=== PATIENT | female | born 1990 | race Caucasian/White ===

== ENCOUNTER 2017-06-03 18:39 | Emergency (ER) | payer MEDICAID, OTHER ==
[2017-06-03 19:54] VITALS: BP 127/69
[2017-06-03] MEDS ORDERED: Ibuprofen TAB* 600 MG PO ONE (20:12)
[2017-06-03] MEDS ORDERED: Ondansetron ODT TAB* 4 MG PO ONE (20:12)
--- NOTE | 2017-06-03 20:41 | UC ---
UC General HPI - HPI Summary HPI Summary: pt states on saturday am she developed chills, nausea, diarrhea and mm aches. on she was dx with a "urethritis" by Dr Roberts. she was prescribed doxycycline but instructed not to start it until the . she got in 3 doses before her current s/s's. she called them and was advised to stop that drug. pt denies travel hx, IBD and abdominal pain. she notes her fiancee has the same symptoms. - History of Current Complaint Chief Complaint: UCGeneralIllness Stated Complaint: FEVER, CHILLS Time Seen by Provider: 06/03/17 20:03 Hx Obtained From: Patient Hx Last Menstrual Period: 05/30/17 Onset/Duration: Gradual Onset Timing: Constant Pain Intensity: 3 Associated Signs & Symptoms: Positive: Diarrhea, Nausea - Allergy/Home Medications Allergies/Adverse Reactions: Allergies Allergy/AdvReac Type Severity Reaction Status Date / Time vancomycin Allergy See Comment Verified 06/03/17 19:48 Home Medications: Home Medications Citalopram TAB* [CeleXA TAB*] 20 mg PO DAILY 06/03/17 [History Confirmed ] DOXYcycline CAP(*) [DOXYcycline 100MG CAP(*)] 100 mg PO BID 06/03/17 [History Confirmed 06/03/17] PMH/Surg Hx/FS Hx/Imm Hx - Additional Past Medical History Additional PMH: Urethritis - Surgical History Surgical History: Yes Surgery Procedure, Year, and Place: T&A. I&D of MRSA Right Buttock. Devaited Septum repair. 08/31 - Family History Known Family History: Positive: Unknown - Adopted Negative: Hypertension Family History: negative - Social History Occupation: Employed Full-time Lives: With Family Alcohol Use: Rare Substance Use Type: None Smoking Status (MU): Never Smoked Tobacco - Immunization History Most Recent Influenza Vaccination: 12/2014 Vaccination Up to Date: Yes Review of Systems Constitutional: Chills Skin: Negative Eyes: Negative ENT: Negative Respiratory: Negative Cardiovascular: Negative Gastrointestinal: Diarrhea, Nausea Genitourinary: Negative Motor: Negative Neurovascular: Negative Musculoskeletal: Myalgia Neurological: Negative Psychological: Negative Is Patient Immunocompromised?: No All Other Systems Reviewed And Are Negative: Yes Physical Exam Triage Information Reviewed: Yes Appearance: Ill-Appearing Vital Signs: Initial Vital Signs Temp 99.1 F 06/03/17 19:46 Pulse 101 06/03/17 19:46 Resp 18 06/03/17 19:46 BP 127/69 06/03/17 19:46 Pulse Ox 100 06/03/17 19:46 Eyes: Positive: Conjunctiva Clear ENT: Positive: Pharynx normal, TMs normal. Negative: Nasal congestion, Nasal drainage Neck: Positive: Supple, Nontender, No Lymphadenopathy Respiratory: Positive: Lungs clear, Normal breath sounds Cardiovascular: Positive: RRR, No Murmur Abdomen Description: Positive: Nontender, No Organomegaly, Soft. Negative: Distended, Guarding Bowel Sounds: Positive: Present Musculoskeletal: Positive: ROM Intact Neurological: Positive: Alert Psychological: Positive: Age Appropriate Behavior Skin Exam: Normal Diagnostics - Laboratory Diagnostic Studies Completed/Ordered: rapid flu=neg. c-diff pending. Course/Dx - Course Course Of Treatment: ill but not toxic. rapid flu neg. no acute abdomen. s/s's similar to GI illness in community. c-diff unlikely after only 3 doses of doxycycline and with fiancee having the same s/s's; however, i will exclude this as well by stool study. close f/u with pcp stressed at time of visit. - Differential Dx - Multi-Symptom Provider Diagnoses: nausea, diarrhea Discharge - Discharge Plan Condition: Stable Disposition: HOME Patient Education Materials: Acute Nausea and Vomiting (ED), Acute Diarrhea (ED ) Forms: *Work Release Referrals: Estefany House MD [Primary Care Provider] - 3 Days
--- NOTE | 2017-06-04 21:24 | UC ---
- Progress Note Progress Note: PLEASE CALL PT. STOOL STUDIES RETURNED POSITIVE FOR CDIFF. ERX FOR METRONIDAZOLE 500MG TID X 10 DAYS SENT TO [facility]. NO ETOH WHILE TAKING THIS MED. IF SX RESOLVE NO FOLLOW-UP STOOL TESTING INDICATED STOOL TESTS CAN REMAIN POSITIVE FOR WEEKS. FOLLOW-UP PCP. - MARIANNA BABCOCK MD Discharge - Sign-Out/Discharge Documenting (check all that apply): Post-Discharge Follow Up - Discharge Plan Condition: Stable Disposition: HOME Prescriptions: metroNIDAZOLE [Flagyl 500 MG TAB] 500 mg PO TID #30 tab Patient Education Materials: Acute Nausea and Vomiting (ED), Acute Diarrhea (ED ) Forms: *Work Release Referrals: Estefany House MD [Primary Care Provider] - 3 Days - Billing Disposition and Condition Condition: STABLE Disposition: HOME
== END 2017-06-03 21:30 | disposition home or self-care (01) ==
LOC: UCCORT 18:39
DX: R11.0 Nausea (principal); R19.7 Diarrhea, unspecified; B96.89 Other specified bacterial agents as the cause of diseases classified elsewhere; Z88.1 Allergy status to other antibiotic agents
CPT/HCPCS: 87493; 87502; 99212; A9270-GY; G0463

== ENCOUNTER 2017-07-31 10:43 | Emergency (ER) | payer OTHER ==
--- NOTE | 2017-07-31 11:33 | UC ---
Respiratory Complaint HPI - HPI Summary HPI Summary: Pt c/o cough, chest tightness, chills, body aches and ST X 2 days. - History of Current Complaint Stated Complaint: UPPER RESPIRATORY COMPLAINT Time Seen by Provider: 07/31/17 11:19 Hx Obtained From: Patient Hx Last Menstrual Period: april - on control ?: No Onset/Duration: Sudden Onset, Lasting Days, Still Present Timing: Constant Severity Initially: Mild Severity Currently: Mild Pain Intensity: 3 Character: Cough: Nonproductive Aggravating Factors: Deep Breaths, Recumbent Position Associated Signs And Symptoms: Positive: Fever, Chills - Risk Factors Pulmonary Embolism Risk Factors: Oral Contraceptives Cardiac Risk Factors: Negative Pseudomonas Risk Factors: Negative Tuberculosis Risk Factors: Negative - Allergies/Home Medications Allergies/Adverse Reactions: Allergies Allergy/AdvReac Type Severity Reaction Status Date / Time vancomycin Allergy See Comment Verified 07/31/17 11:21 doxycycline AdvReac Severe c-diff Verified 07/31/17 11:21 Home Medications: Home Medications Control 07/31/17 [History] PMH/Surg Hx/FS Hx/Imm Hx Previously Healthy: Yes - Surgical History Surgical History: Yes Surgery Procedure, Year, and Place: T&A. I&D of MRSA Right Buttock. Devaited Septum repair. 08/31. Cdiff - Family History Known Family History: Positive: Unknown - Adopted Negative: Hypertension Family History: negative - Social History Occupation: Employed Full-time Lives: With Family Alcohol Use: Rare Substance Use Type: None Smoking Status (MU): Never Smoked Tobacco Have You Smoked in the Last Year: No - Immunization History Most Recent Influenza Vaccination: 12/2014 Vaccination Up to Date: Yes Review of Systems Constitutional: Fever, Chills Skin: Negative Eyes: Negative ENT: Sore Throat Respiratory: Cough Cardiovascular: Negative Gastrointestinal: Negative Genitourinary: Negative Motor: Negative Neurovascular: Negative Musculoskeletal: Negative Neurological: Negative Psychological: Negative Is Patient Immunocompromised?: No All Other Systems Reviewed And Are Negative: Yes Physical Exam Triage Information Reviewed: Yes Appearance: Well-Appearing Vital Signs: Initial Vital Signs Temp 99.2 F 07/31/17 11:14 Pulse 120 07/31/17 11:14 Resp 18 07/31/17 11:14 BP 132/67 07/31/17 11:14 Pulse Ox 100 07/31/17 11:14 Vital Signs Reviewed: Yes Eye Exam: Normal ENT Exam: Normal ENT: Positive: TM bulging Neck exam: Normal Respiratory Exam: Normal Respiratory: Positive: Lungs clear, Normal breath sounds, No respiratory distress Cardiovascular: Positive: Tachycardia Musculoskeletal Exam: Normal Neurological Exam: Normal Psychological Exam: Normal Skin Exam: Normal UC Diagnostic Evaluation - Laboratory O2 Sat by Pulse Oximetry: 100 Respiratory Course/Dx - Differential Dx/Diagnosis Differential Diagnosis/HQI/PQRI: Bronchitis, Influenza Provider Diagnoses: URI Discharge - Sign-Out/Discharge Documenting (check all that apply): Discharge/Admit/Transfer - Discharge Plan Condition: Stable Disposition: HOME Prescriptions: Benzonatate CAP* [Tessalon 100 MG CAP*] 100 mg PO Q8H PRN #30 cap PRN Reason: Cough Guaifenesin/Pseudoephedrne HCl [Mucinex D ER 1,200-120 mg Tab] 1 each PO DAILY # 10 tab predniSONE TAB* [Deltasone TAB*] 20 mg PO DAILY #3 tab Patient Education Materials: Upper Respiratory Infection (ED) Referrals: Estefany House MD [Primary Care Provider] - If Needed - Billing Disposition and Condition Condition: STABLE Disposition: HOME
[2017-07-31 11:46] VITALS: BP 106/61
== END 2017-07-31 11:40 | disposition home or self-care (01) ==
LOC: UCCORT 10:43
DX: J06.9 Acute upper respiratory infection, unspecified (principal); Z88.1 Allergy status to other antibiotic agents
CPT/HCPCS: 99212; G0463

== ENCOUNTER 2017-09-21 21:30 | Emergency (ER) | payer OTHER ==
[2017-09-21 21:39] VITALS: BP 137/74
[2017-09-21] MEDS ORDERED: HYDROcodone/ACETAMIN 5-325 MG* 1 TAB PO ONE (21:50)
[2017-09-21] MEDS ORDERED: Sulfamethox/Trimethoprim DS 800/160* TAB PO ONE (21:51)
--- NOTE | 2017-09-21 21:55 | UC ---
Skin Complaint HPI - HPI Summary HPI Summary: abscess developing on right buttock---began last night-- - History of Current Complaint Chief Complaint: UCSkin Time Seen by Provider: 09/21/17 21:47 Stated Complaint: BOIL BUTTOCK Hx Obtained From: Patient Hx Last Menstrual Period: 09/02/17 ?: No Onset/Duration: Sudden Onset, Lasting Days - 1, Still Present Timing: Constant Pain Intensity: 6 Pain Scale Used: 0-10 Numeric Location: Discrete - right buttock Character: Pain, Redness Aggravating Factor(s): Touch Alleviating Factor(s): Nothing Associated Signs & Symptoms: Positive: Tenderness - Allergy/Home Medications Allergies/Adverse Reactions: Allergies Allergy/AdvReac Type Severity Reaction Status Date / Time vancomycin Allergy See Comment Verified 09/21/17 21:39 doxycycline AdvReac Severe c-diff Verified 09/21/17 21:39 Home Medications: Home Medications Topiramate TAB(*) [Topamax 100 mg tab] 100 mg PO BID 09/21/17 [History Confirmed 09/21/17] Review of Systems Constitutional: Negative Skin: Other - developing abscess on right buttock--tender and painful Eyes: Negative ENT: Negative Respiratory: Negative Cardiovascular: Negative Gastrointestinal: Negative Genitourinary: Negative Motor: Negative Neurovascular: Negative Musculoskeletal: Negative Neurological: Negative Psychological: Negative Is Patient Immunocompromised?: No All Other Systems Reviewed And Are Negative: Yes PMH/Surg Hx/FS Hx/Imm Hx Previously Healthy: No - abscess Endocrine History: Hypothyroidism Neurological History: Migraine Psychological History: Anxiety - Surgical History Surgical History: Yes Surgery Procedure, Year, and Place: T&A. I&D Right Buttock. Devaited Septum repair. 08/31 - Family History Known Family History: Positive: Unknown - Adopted Negative: Hypertension Family History: negative - Social History Occupation: Employed Full-time Lives: With Family Alcohol Use: Rare Substance Use Type: None Smoking Status (MU): Never Smoked Tobacco Have You Smoked in the Last Year: No - Immunization History Most Recent Influenza Vaccination: 12/2014 Most Recent Tetanus Shot: UTD Vaccination Up to Date: Yes Physical Exam Triage Information Reviewed: Yes Appearance: Well-Appearing, No Pain Distress, Well-Nourished Vital Signs: Initial Vital Signs Temp 98.3 F 09/21/17 21:36 Pulse 102 09/21/17 21:36 Resp 16 09/21/17 21:36 BP 137/74 09/21/17 21:36 Pulse Ox 100 09/21/17 21:36 Vital Signs Reviewed: Yes Eye Exam: Normal Eyes: Positive: Conjunctiva Clear ENT Exam: Normal ENT: Positive: Normal ENT inspection, Hearing grossly normal. Negative: Tonsillar exudate, Trismus, Hoarse voice Dental Exam: Normal Neck exam: Normal Neck: Positive: Supple, Nontender, No Lymphadenopathy Respiratory Exam: Normal Respiratory: Positive: Chest non-tender, No respiratory distress, No accessory muscle use Cardiovascular Exam: Normal Cardiovascular: Positive: RRR, Pulses Normal, Brisk Capillary Refill Musculoskeletal Exam: Normal Neurological Exam: Normal Psychological Exam: Normal Skin Exam: Other Skin: Positive: Other - abscess right buttock--no fluctulance, tenting or softening center Course/Dx - Course Course Of Treatment: tylenol, iburofen heat, hydrocodone bactrim, follow with PCP or surgeon on Saturday, return as needed - Diagnoses Provider Diagnoses: abscess right buttock Discharge - Sign-Out/Discharge Documenting (check all that apply): Discharge/Admit/Transfer - Discharge Plan Condition: Stable Disposition: HOME Prescriptions: Hydrocodone/Acetaminophen [Hydrocodone-Acetamin 5-325 mg] 1 each PO Q6H PRN #12 tablet MDD 4 PRN Reason: pain Sulfamethox/Trimethoprim DS* [Bactrim DS 800/160 TAB*] 1 tab PO BID #19 tab Patient Education Materials: Abscess (ED), Warm Compress or Soak (ED) Referrals: Estefany House MD [Primary Care Provider] - 2 Days Jose Alston [Medical Doctor] - 2 Days - Billing Disposition and Condition Condition: STABLE Disposition: Home
== END 2017-09-21 22:02 | disposition home or self-care (01) ==
LOC: UCCORT 21:30
DX: L02.31 Cutaneous abscess of buttock (principal); Z88.1 Allergy status to other antibiotic agents
CPT/HCPCS: 99212; A9270-GY; G0463

== ENCOUNTER 2017-10-28 13:22 | Emergency (ER) | payer OTHER ==
[2017-10-28 13:45] VITALS: BP 113/76
--- NOTE | 2017-10-28 14:15 | UC ---
Lower Extremity/Ankle HPI - HPI Summary HPI Summary: 26 year old female presents with onset of left plantar foot pain yesterday that has progressively worsened. Describes as ache. Worse with weight bearing and ambulation. States she thinks there is a little swelling to lateral aspect of foot. Reports she was at [facility] all weekend and was doing a lot of walking. Denies fever, chills, CP, SOB, erythema, ecchymosis, calf pain/swelling , alteration in sensation, or injury. - History of Current Complaint Chief Complaint: UCLowerExtremity Stated Complaint: LEFT FOOT PAIN Time Seen by Provider: 10/28/17 13:44 Hx Obtained From: Patient Hx Last Menstrual Period: 10/09/17 ?: No Onset/Duration: Gradual Onset, Lasting Days - 2 Severity Initially: Mild Severity Currently: Moderate Pain Intensity: 7 Aggravating Factor(s): Standing, Ambulation Alleviating Factor(s): Nothing Able to Bear Weight: Yes - Allergies/Home Medications Allergies/Adverse Reactions: Allergies Allergy/AdvReac Type Severity Reaction Status Date / Time vancomycin Allergy See Comment Verified 10/28/17 13:40 doxycycline AdvReac Severe c-diff Verified 10/28/17 13:40 PMH/Surg Hx/FS Hx/Imm Hx Previously Healthy: Yes - Surgical History Surgical History: Yes Surgery Procedure, Year, and Place: T&A. I&D Right Buttock. Devaited Septum repair. 08/31 - Family History Known Family History: Positive: Unknown - Adopted Family History: negative - Social History Occupation: Employed Full-time Lives: With Family Alcohol Use: Occasionally Substance Use Type: None Smoking Status (MU): Never Smoked Tobacco Have You Smoked in the Last Year: No - Immunization History Most Recent Influenza Vaccination: 12/2014 Most Recent Tetanus Shot: UTD Vaccination Up to Date: Yes Review of Systems Constitutional: Negative Skin: Negative Cardiovascular: Negative Gastrointestinal: Negative Motor: Negative Neurovascular: Negative Musculoskeletal: Other: - See HPI. Is Patient Immunocompromised?: No All Other Systems Reviewed And Are Negative: Yes Physical Exam Triage Information Reviewed: Yes Appearance: Well-Appearing, No Pain Distress, Well-Nourished Vital Signs: Initial Vital Signs Temp 97.5 F 10/28/17 13:41 Pulse 92 10/28/17 13:41 Resp 16 10/28/17 13:41 BP 113/76 10/28/17 13:41 Pulse Ox 100 10/28/17 13:41 Vital Signs Reviewed: Yes Respiratory: Positive: No respiratory distress Cardiovascular: Positive: Pulses Normal, Brisk Capillary Refill Musculoskeletal: Positive: Other: - Tenderness over the plantar fascia. No erythema, ecchymosis, edema, or deforminty noted. Neurological: Positive: Other: - Sensation intact. Skin Exam: Normal Lower Extremity Course/Dx - Course Course Of Treatment: 26 year old female with 2 day history of progressively worsening left plantar foot pain after spending weekend at [employer]. Denies injury. Tenderness over the plantar fascia. With no history of traumatic injury, will defer X-ray at this time. Treat with naproxen 500 mg BID and conservative measures including exercises, icing, and supportive footwear. Patient to follow up with PCP in 7 days if no improvement. - Differential Dx/Diagnosis Provider Diagnoses: Plantar fascitits Discharge - Sign-Out/Discharge Documenting (check all that apply): Patient Departure - Discharge Plan Condition: Stable Disposition: HOME Prescriptions: Naproxen [Naproxen 500 mg tab] 500 mg PO BID #30 tablet. Patient Education Materials: Plantar Fasciitis Exercises (GEN), Plantar Fasciitis (ED) Referrals: Estefany House MD [Primary Care Provider] - 7 Days (If no improvement.) Additional Instructions: Take naproxen 500 mg 1 tab twice a day with food for 7 days then may take twice a day as needed. Be sure to wear good supportive shoes. I would recommend getting arch supports and use in your shoes. Use the exercises that were provided to you. Ice the affected area for 15 minutes 3-4 times a day for next several days. Follow up with your primary care provider in 7 days if no improvement. - Billing Disposition and Condition Condition: STABLE Disposition: Home
== END 2017-10-28 14:23 | disposition home or self-care (01) ==
LOC: UCCORT 13:22
DX: M72.2 Plantar fascial fibromatosis (principal); Z88.1 Allergy status to other antibiotic agents
CPT/HCPCS: 99212; G0463